=== PATIENT | male | born 1965 | race Caucasian/White ===

== ENCOUNTER 2021-02-16 20:48 | Inpatient (IN) ==
[2021-02-16] MEDS ORDERED: 0.9 % Sodium Chloride 1,000 ML IVC ONE (22:09)
[2021-02-16] MEDS ORDERED: *HR* FentaNYL (PF) 100 MCG/2 ML VIAL IVP ONE ×2 (22:10→22:46)
[2021-02-16 22:40] LABS: Basophils # 0.1 K/mcL (0.0-0.2); Basophils % 1.2 %; Eosinophils # 0.1 K/mcL (0.0-0.6); Eosinophils % 1.5 %; Hematocrit 43.4 % (37.5-50.1); Hemoglobin 15.6 g/dL (12.9-16.9); Immature Granulocytes % 0.6 % (0-4); Lymphocytes # 1.8 K/mcL (0.6-4.6); Lymphocytes % 26.4 %; Mean Corpuscular HGB Conc 35.9 g/dL (31.6-35.5); Mean Corpuscular Hemoglobin 34.3 pg (28.0-33.3); Mean Corpuscular Volume 95.4 fL (83.0-100.0); Mean Platelet Volume 9.7 fL (9.4-12.4); Monocytes # 0.5 K/mcL (0.0-1.3); Neutrophils # 4.3 K/mcL (1.6-8.9); Platelet Count 163 K/mcL (140-400); Red Blood Count 4.55 M/mcL (4.19-5.50); Red Cell Distribution Width 11.9 % (11.5-14.5); Segmented Neutrophils % 63.3 %; White Blood Count 6.9 K/mcL (4.3-11.1)
[2021-02-16 22:48] LABS: Prothrombin Time 10.9 Seconds (9.4-12.1)
[2021-02-16 22:50] LABS: Activated Partial Thrombo Time 30.1 Seconds (26.0-36.0)
[2021-02-17] LABS: Alanine Aminotransferase 43 Units/L (7-52); Albumin 4.3 g/dL (3.5-5.7); Albumin/Globulin Ratio 1.5 (1.1-2.2); Alkaline Phosphatase 69 Units/L (34-104); Aspartate Amino Transferase 50 Units/L (13-39); BUN/Creatinine Ratio 10 (6-26); Bilirubin,Total 0.5 mg/dL (0.3-1.0); Blood Urea Nitrogen 6 mg/dL (6-20); Calcium 9.2 mg/dL (8.6-10.3); Carbon Dioxide 23 mEq/L (23-29); Chloride 91 mEq/L (98-107); Ethanol 269 mg/dL (Less than 10); Globulin 2.9 g/dL (2.4-3.5); Glucose 118 mg/dL (70-105); Osmolality,Calculated 269 (280-300); Potassium 3.1 mEq/L (3.5-5.1); Sodium 130 mEq/L (136-145); Total Protein 7.2 g/dL (6.4-8.9); eGFR For African Americans > 60 (> 60); eGFR For Non-African Americans > 60 (> 60)
[2021-02-17] MEDS ORDERED: Acetaminophen 325 MG TABLET PO PRN (00:19)
[2021-02-17] MEDS ORDERED: Melatonin 3 MG TABLET PO PRN (00:19)
[2021-02-17] MEDS ORDERED: Naloxone 0.4 MG/ML INJ IVP PRN ×2 (00:19→20:14)
[2021-02-17] MEDS ORDERED: Ondansetron 4 MG/2 ML VIAL IVP PRN ×2 (00:19→13:27)
[2021-02-17] MEDS ORDERED: *HR* LORazepam 2 MG/ML VIAL IVP PRN ×6 (00:27→20:14)
[2021-02-17] MEDS ORDERED: 0.9 % Sodium Chloride 1,000 ML IVC SCH (00:30)
[2021-02-17] MEDS: Vitamin B Complex/Vit C/Vit E 1 EACH TABLET PO SCH ×2 (00:56→09:12)
[2021-02-17] MEDS: Thiamine (B-1) 100 MG TABLET PO SCH ×2 (00:56→09:12)
[2021-02-17 01:01] LABS: Magnesium 1.6 mg/dL (1.6-2.6)
[2021-02-17 08:08] LABS: Hematocrit 43.7 % (37.5-50.1); Hemoglobin 15.4 g/dL (12.9-16.9); Mean Corpuscular HGB Conc 35.2 g/dL (31.6-35.5); Mean Corpuscular Volume 96.5 fL (83.0-100.0); Mean Platelet Volume 9.8 fL (9.4-12.4); Platelet Count 157 K/mcL (140-400); Red Blood Count 4.53 M/mcL (4.19-5.50); White Blood Count 7.7 K/mcL (4.3-11.1)
[2021-02-17 08:59] LABS: BUN/Creatinine Ratio 7 (6-26); Blood Urea Nitrogen 4 mg/dL (6-20); Carbon Dioxide 28 mEq/L (23-29); Chloride 98 mEq/L (98-107); Glucose 102 mg/dL (70-105); Osmolality,Calculated 281 (280-300); Potassium 3.1 mEq/L (3.5-5.1); Sodium 137 mEq/L (136-145); eGFR For African Americans > 60 (> 60); eGFR For Non-African Americans > 60 (> 60)
[2021-02-17] MEDS ORDERED: Folic Acid 1 MG TABLET PO SCH (09:00)
[2021-02-17] MEDS ORDERED: Famotidine 20 MG/2 ML VIAL IVP ONE ×3 (13:27→20:14)
[2021-02-17] MEDS ORDERED: *HR* HYDROmorphone PF 0.5 MG/0.5 ML SYRINGE IVP PRN ×2 (13:27→20:14)
[2021-02-17] MEDS ORDERED: *HR* OxyCODONE Immed Rel 5 MG TABLET PO PRN (13:27)
[2021-02-17] MEDS ORDERED: Metoclopramide 10 MG/2 ML VIAL IVP ONE ×3 (13:27→20:14)
[2021-02-17] MEDS ORDERED: Acetaminophen IV 1,000 MG/100 ML BAG IVPB ONE ×2 (13:31→15:30)
[2021-02-17] MEDS ORDERED: *HR* Rocuronium Bromide 50 MG/5 ML VIAL ONE ×2 (15:08→16:22)
[2021-02-17] MEDS ORDERED: Lidocaine HCL 4 ML Topical Solution (Laryng-O-Jet Kit Sterile Pak) TP ONE (15:08)
[2021-02-17] MEDS ORDERED: *HR* Succinylcholine 200 MG/10 ML VIAL IVP ONE (15:08)
[2021-02-17] MEDS ORDERED: Lidocaine -MPF 2% 5 ML VIAL ONE (15:08)
[2021-02-17] MEDS ORDERED: Ondansetron 4 MG/2 ML VIAL ONE (15:08)
[2021-02-17] MEDS ORDERED: *HR* HYDROMORPHONE 2 MG/ML VIAL ONE ×2 (15:09→18:01)
[2021-02-17] MEDS ORDERED: *HR* FentaNYL (PF) 100 MCG/2 ML VIAL ONE (15:09)
[2021-02-17] MEDS ORDERED: *HR* Midazolam HCl 2 MG/2 ML VIAL ONE (15:09)
[2021-02-17] MEDS ORDERED: *HR* Propofol 200 MG/20 ML VIAL IVP ONE (15:09)
[2021-02-17] MEDS ORDERED: Tranexamic Acid 1,000 MG/10 ML VIAL ONE (15:12)
[2021-02-17] MEDS ORDERED: Povidone-Iodine 45 ML, Sodium Chloride IRRigation 1,000 ML IR ONE (15:15)
[2021-02-17] MEDS ORDERED: TOTAL JOINT MIXTURE (100ML) INTRAART ONE (15:15)
[2021-02-17] MEDS ORDERED: CeFAZolin Syr 2,000MG/20 ML 2,000 MG/20 ML SYRINGE IVPB ONE ×2 (15:35→15:38)
[2021-02-17] MEDS ORDERED: Albumin Human 5% 25.0 GM/500 ML IV.SOLN ONE (15:36)
[2021-02-17] MEDS ORDERED: Ringers Solution, Lactated 1,000 ML IVC SCH (15:45)
[2021-02-17] MEDS ORDERED: *HR* Labetalol 20 MG/4 ML SYRINGE IVP ONE (16:39)
[2021-02-17] MEDS ORDERED: Sugammadex Sodium 200 MG/2 ML VIAL IV ONE (18:58)
[2021-02-17] MEDS ORDERED: Ketorolac 15 MG/ML VIAL IVP PRN (20:14)
[2021-02-17] MEDS ORDERED: Vancomycin 1,000 MG VIAL IVPB ONE (20:14)
[2021-02-17] MEDS ORDERED: Vancomycin 1,250 MG/262.5 ML IV.SOLN IVPB ONE (21:00)
[2021-02-17 23:28] LABS: Ethanol < 10 mg/dL (Less than 10); Potassium 3.9 mEq/L (3.5-5.1)
[2021-02-18] MEDS: CeFAZolin 2 GM/120 ML BAG IVPB SCH ×3 (00:13→15:42)
[2021-02-18 07:58] LABS: Hematocrit 36.7 % (37.5-50.1); Mean Corpuscular HGB Conc 33.5 g/dL (31.6-35.5); Mean Corpuscular Hemoglobin 33.4 pg (28.0-33.3); Mean Corpuscular Volume 99.7 fL (83.0-100.0); Mean Platelet Volume 10.4 fL (9.4-12.4); Platelet Count 113 K/mcL (140-400); Red Blood Count 3.68 M/mcL (4.19-5.50); Red Cell Distribution Width 12.1 % (11.5-14.5); White Blood Count 9.2 K/mcL (4.3-11.1)
[2021-02-18 08:00] LABS: Hemoglobin 12.3 g/dL (12.9-16.9)
[2021-02-18] MEDS: Thiamine (B-1) 100 MG TABLET PO SCH (08:13)
[2021-02-18] MEDS: hydroCHLOROthiazide 25 MG TABLET PO SCH (08:13)
[2021-02-18] MEDS: amLODIPine 5 MG TABLET PO SCH (08:13)
[2021-02-18] MEDS: Folic Acid 1 MG TABLET PO SCH (08:13)
[2021-02-18] MEDS: Vitamin B Complex/Vit C/Vit E 1 EACH TABLET PO SCH (08:13)
[2021-02-18 08:14] LABS: BUN/Creatinine Ratio 8 (6-26); Blood Urea Nitrogen 4 mg/dL (6-20); Calcium 8.7 mg/dL (8.6-10.3); Carbon Dioxide 29 mEq/L (23-29); Chloride 97 mEq/L (98-107); Glucose 110 mg/dL (70-105); Osmolality,Calculated 274 (280-300); Potassium 3.7 mEq/L (3.5-5.1); Sodium 133 mEq/L (136-145); eGFR For African Americans > 60 (> 60); eGFR For Non-African Americans > 60 (> 60)
[2021-02-18] MEDS ORDERED: hydroCHLOROthiazide 25 MG TABLET PO SCH (09:00)
[2021-02-18] MEDS ORDERED: amLODIPine 5 MG TABLET PO SCH (09:00)
[2021-02-18] MEDS: Acetaminophen 325 MG TABLET PO PRN (15:42)
[2021-02-18] MEDS: *HR* OxyCODONE Immed Rel 5 MG TABLET PO PRN (20:50)
[2021-02-19] MEDS: CeFAZolin 2 GM/120 ML BAG IVPB SCH ×2 (00:42→08:11)
[2021-02-19] MEDS: Acetaminophen 325 MG TABLET PO PRN ×2 (03:20→14:29)
[2021-02-19] MEDS: *HR* OxyCODONE Immed Rel 5 MG TABLET PO PRN ×4 (03:30→23:35)
[2021-02-19] MEDS: Vitamin B Complex/Vit C/Vit E 1 EACH TABLET PO SCH (08:10)
[2021-02-19] MEDS: amLODIPine 5 MG TABLET PO SCH (08:10)
[2021-02-19] MEDS: Thiamine (B-1) 100 MG TABLET PO SCH (08:11)
[2021-02-19] MEDS: hydroCHLOROthiazide 25 MG TABLET PO SCH (08:11)
[2021-02-19] MEDS: Folic Acid 1 MG TABLET PO SCH (08:11)
[2021-02-19 08:31] LABS: Hematocrit 33.5 % (37.5-50.1); Hemoglobin 11.3 g/dL (12.9-16.9); Mean Corpuscular HGB Conc 33.7 g/dL (31.6-35.5); Mean Corpuscular Hemoglobin 33.2 pg (28.0-33.3); Mean Corpuscular Volume 98.5 fL (83.0-100.0); Platelet Count 104 K/mcL (140-400)
[2021-02-19 08:53] LABS: BUN/Creatinine Ratio 14 (6-26); Blood Urea Nitrogen 7 mg/dL (6-20); Calcium 8.8 mg/dL (8.6-10.3); Carbon Dioxide 32 mEq/L (23-29); Chloride 95 mEq/L (98-107); Glucose 112 mg/dL (70-105); Osmolality,Calculated 273 (280-300); Potassium 3.1 mEq/L (3.5-5.1); Sodium 132 mEq/L (136-145); eGFR For African Americans > 60 (> 60); eGFR For Non-African Americans > 60 (> 60)
[2021-02-19 13:28] LABS: Hematocrit 32.1 % (37.5-50.1); Hemoglobin 10.7 g/dL (12.9-16.9)
[2021-02-20] MEDS: *HR* OxyCODONE Immed Rel 5 MG TABLET PO PRN ×3 (06:14→18:55)
[2021-02-20 06:34] LABS: Hematocrit 27.6 % (37.5-50.1); Hemoglobin 9.2 g/dL (12.9-16.9); Mean Corpuscular HGB Conc 33.3 g/dL (31.6-35.5); Mean Corpuscular Hemoglobin 33.2 pg (28.0-33.3); Mean Corpuscular Volume 99.6 fL (83.0-100.0); Mean Platelet Volume 10.3 fL (9.4-12.4); Platelet Count 114 K/mcL (140-400); Red Blood Count 2.77 M/mcL (4.19-5.50); Red Cell Distribution Width 11.7 % (11.5-14.5); White Blood Count 7.3 K/mcL (4.3-11.1)
[2021-02-20 06:54] LABS: BUN/Creatinine Ratio 17 (6-26); Blood Urea Nitrogen 9 mg/dL (6-20); Calcium 8.8 mg/dL (8.6-10.3); Carbon Dioxide 32 mEq/L (23-29); Chloride 94 mEq/L (98-107); Glucose 118 mg/dL (70-105); Osmolality,Calculated 274 (280-300); Potassium 3.2 mEq/L (3.5-5.1); Sodium 132 mEq/L (136-145); eGFR For African Americans > 60 (> 60); eGFR For Non-African Americans > 60 (> 60)
[2021-02-20] MEDS: Thiamine (B-1) 100 MG TABLET PO SCH (09:03)
[2021-02-20] MEDS: Vitamin B Complex/Vit C/Vit E 1 EACH TABLET PO SCH (09:03)
[2021-02-20] MEDS: amLODIPine 5 MG TABLET PO SCH (09:03)
[2021-02-20] MEDS: Folic Acid 1 MG TABLET PO SCH (09:03)
[2021-02-20] MEDS: hydroCHLOROthiazide 25 MG TABLET PO SCH (09:03)
[2021-02-20] MEDS: Acetaminophen 325 MG TABLET PO PRN ×2 (09:10→22:10)
[2021-02-20 15:31] LABS: Hematocrit 30.5 % (37.5-50.1); Hemoglobin 10.6 g/dL (12.9-16.9)
[2021-02-20 21:34] LABS: Hematocrit 29.2 % (37.5-50.1); Hemoglobin 9.9 g/dL (12.9-16.9)
[2021-02-20] MEDS: Ondansetron 4 MG/2 ML VIAL IVP PRN (23:28)
[2021-02-21 05:09] LABS: Basophils % 0.4 %; Eosinophils % 0.4 %; Hematocrit 29.4 % (37.5-50.1); Hemoglobin 10.4 g/dL (12.9-16.9); Immature Granulocytes % 0.9 % (0-4); Lymphocytes % 11.4 %; Mean Corpuscular HGB Conc 35.4 g/dL (31.6-35.5); Mean Corpuscular Hemoglobin 34.3 pg (28.0-33.3); Monocytes # 0.9 K/mcL (0.0-1.3); Monocytes % 10.2 %; Neutrophils # 6.5 K/mcL (1.6-8.9); Platelet Count 168 K/mcL (140-400); Red Blood Count 3.03 M/mcL (4.19-5.50); Red Cell Distribution Width 11.4 % (11.5-14.5); Segmented Neutrophils % 76.7 %; White Blood Count 8.5 K/mcL (4.3-11.1)
[2021-02-21 05:35] LABS: BUN/Creatinine Ratio 15 (6-26); Blood Urea Nitrogen 7 mg/dL (6-20); Calcium 9.6 mg/dL (8.6-10.3); Carbon Dioxide 31 mEq/L (23-29); Chloride 92 mEq/L (98-107); Glucose 154 mg/dL (70-105); Magnesium 1.5 mg/dL (1.6-2.6); Osmolality,Calculated 277 (280-300); Potassium 3.3 mEq/L (3.5-5.1); Sodium 133 mEq/L (136-145); eGFR For African Americans > 60 (> 60); eGFR For Non-African Americans > 60 (> 60)
[2021-02-21] MEDS: *HR* OxyCODONE Immed Rel 5 MG TABLET PO PRN ×2 (05:38→15:17)
[2021-02-21] MEDS: Acetaminophen 325 MG TABLET PO PRN (05:38)
[2021-02-21] MEDS: Folic Acid 1 MG TABLET PO SCH (09:45)
[2021-02-21] MEDS: Vitamin B Complex/Vit C/Vit E 1 EACH TABLET PO SCH (09:45)
[2021-02-21] MEDS: hydroCHLOROthiazide 25 MG TABLET PO SCH (09:45)
[2021-02-21] MEDS: amLODIPine 5 MG TABLET PO SCH (09:46)
[2021-02-21] MEDS: Thiamine (B-1) 100 MG TABLET PO SCH (09:46)
[2021-02-21] MEDS ORDERED: polyethylene glycoL 3350 17 GM POWD.PACK PO PRN (09:47)
[2021-02-21] MEDS ORDERED: Sennosides/Docusate Sodium TABLET PO SCH (10:00)
[2021-02-21 10:46] VITALS: BP 118/77; PULSE 91; TEMP 98.1; O2SAT 92
[2021-02-21] MEDS: Ondansetron 4 MG/2 ML VIAL IVP PRN (12:45)
== END 2021-02-21 15:24 | DRG 481 ==
LOC: 4WAOSI 20:48 → EMEROOARM 20:48 → SUATTDRO 23:59 → 4WAOSI 02-17 00:17 → SUATTDRO 02-17 13:58
PROVIDERS: ADMIT Internal Medicine; ATTEND Internal Medicine